=== PATIENT | female | born 1995 | race American Indian/Alaskan Native ===

== ENCOUNTER 2019-07-26 04:24 | Emergency (ER) | payer BC, MEDICAID ==
[2019-07-26] MEDS ORDERED: ACETAMINOPHEN 325 MG TAB ONE (04:43)
[2019-07-26] MEDS ORDERED: ACETAMINOPHEN 325 MG TAB PO ONE (04:48)
[2019-07-26 05:19] LABS: Hematocrit 42.1 % (30.3-42.9); Hemoglobin 14.1 gm/dl (10.1-14.3); Mean Corpuscular HGB Conc 34 % (30-34); Mean Corpuscular Volume 89 fl (79-97); Platelet Count 280 K/mm3 (140-440); Red Blood Count 4.74 M/mm3 (3.65-5.03); Red Cell Distribution Width 13.7 % (13.2-15.2)
[2019-07-26 05:59] LABS: BUN/Creatinine Ratio 14; Blood Urea Nitrogen 18 mg/dL (7-17); Hemolysis Index 12
[2019-07-26 06:06] LABS: Basophils % (Manual) 0 % (0.0-1.8); Platelet Estimate Consistent w Auto; Total Cells Counted 100
--- NOTE | 2019-07-26 08:23 | Emergency Department Report ---
ED General Adult HPI - General Chief complaint: Extremity Injury, Lower Stated complaint: BILATAERAL LEG PAIN Time Seen by Provider: 07/26/19 07:43 Source: patient, family Mode of arrival: Ambulatory Limitations: No Limitations - History of Present Illness Initial comments: This is a 23-year-old female here report that she is having joint pain bilateral lower extremity. She said the pain is located all over but mostly to her knees extending down to her toes. She reports that she woke up this morning she was having spasms to her legs. Patient reports no medical problems she does have a primary medical care physician. She does not remember the name of her primary care physician but she said office is located at [facility]. She says she took ibuprofen 600 mg prior to coming to the emergency room. Denies any shortness of breath, chest pain, nausea and vomiting, abdominal back pain. Denies any urinary burning, frequency or urgency. Patient is on Mirena and denies any recent long distance travel by airplane or car. Denies any history of blood clots or any family history of clotting disorder. Denies any fever or chills. Pain is 10/10 to lower extremities and 4/10 to joints upper extremities. Pain is achy and started this morning. She reports that her legs are spasming this morning with onset of pain. MD Complaint: Joint pain -: This morning Location: upper extremity, lower extremity Radiation: extremity, distal Severity scale (0 -10): 10 Quality: aching Consistency: constant Worsens with: none Associated Symptoms: other ( leg spasm). denies: confusion, chest pain, cough, diaphoresis, fever/chills, headaches, loss of appetite, malaise, nausea/vomiting, rash, seizure, shortness of breath, syncope, weakness Treatments Prior to Arrival: NSAID - Related Data Home Medications Medication Instructions Recorded Confirmed Last Taken Pnv 21/Iron Ps,Heme Ppep/Folic 1 each PO QDAY 01/30/15 03/18/15 01/29/15 12:00 [Prefera Ob Tablet] 1 Previous Rx's Medication Instructions Recorded Last Taken Type cephALEXin [Keflex] 250 mg PO Q6HR #28 capsule 03/10/15 Unknown Rx Famotidine [Pepcid] 20 mg PO BID #40 tablet 03/19/15 Unknown Rx Loratadine (Nf) [Claritin] 10 mg PO DAILY #30 tablet 03/19/15 Unknown Rx Prednisone [predniSONE 5 mg (6-Day 5 mg PO .TAPER #1 tab.ds.pk 03/19/15 Unknown Rx Pack, 21 Tabs)] Acetaminophen [Tylenol] 500 mg PO Q6HR PRN #12 tablet 07/26/19 Unknown Rx diazePAM TAB [Valium] 1 mg PO BID PRN #2 tablet 07/26/19 Unknown Rx Allergies Allergy/AdvReac Type Severity Reaction Status Date / Time No Known Allergies Allergy Verified 01/30/15 09:54 ED Review of Systems ROS: Stated complaint: BILATAERAL LEG PAIN Other details as noted in HPI Constitutional: denies: chills, fever ENT: denies: throat pain, congestion Respiratory: denies: cough, shortness of breath, wheezing Cardiovascular: denies: chest pain, palpitations, dyspnea on exertion, edema, syncope, paroxysmal nocturnal dyspnea Gastrointestinal: denies: abdominal pain, nausea, vomiting, diarrhea, constipation, hematemesis, hematochezia Genitourinary: denies: urgency, dysuria, frequency, hematuria, discharge, abnormal menses, dyspareunia Musculoskeletal: arthralgia, other (spasms the leg). denies: back pain, joint swelling, myalgia Skin: denies: rash Neurological: denies: headache, numbness, paresthesias, abnormal gait, vertigo ED Past Medical Hx - Past Medical History Previous Medical History?: No Hx Hypertension: No Hx Congestive Heart Failure: No Hx Diabetes: No Hx Deep Vein Thrombosis: No Hx Renal Disease: No Hx Sickle Cell Disease: No Hx Seizures: No Hx Asthma: No Hx COPD: No Hx HIV: No - Surgical History Past Surgical History?: No - Family History Family history: hypertension - Social History Smoking Status: Never Smoker Substance Use Type: None - Medications Home Medications: Home Medications Medication Instructions Recorded Confirmed Last Taken Type Pnv 21/Iron Ps,Heme Ppep/Folic 1 each PO QDAY 01/30/15 03/18/15 01/29/15 12:00 History [Prefera Ob Tablet] 1 cephALEXin [Keflex] 250 mg PO Q6HR #28 capsule 03/10/15 03/18/15 Unknown Rx Famotidine [Pepcid] 20 mg PO BID #40 tablet 03/19/15 Unknown Rx Loratadine (Nf) [Claritin] 10 mg PO DAILY #30 tablet 03/19/15 Unknown Rx Prednisone [predniSONE 5 mg (6-Day 5 mg PO .TAPER #1 tab.ds.pk 03/19/15 Unknown Rx Pack, 21 Tabs)] Acetaminophen [Tylenol] 500 mg PO Q6HR PRN #12 tablet 07/26/19 Unknown Rx diazePAM TAB [Valium] 1 mg PO BID PRN #2 tablet 07/26/19 Unknown Rx ED Physical Exam - General Limitations: No Limitations General appearance: alert, in no apparent distress - Head Head exam: Present: atraumatic, normocephalic, normal inspection - Expanded Head Exam Expanded Head exam: Absent: laceration, abrasion, contusion, hematoma, racoon eyes, dunne's sign, general tenderness, tenderness of temporal artery, CSF rhinorrhea, CSF otorrhea - Eye Eye exam: Present: normal appearance, PERRL, EOMI. Absent: nystagmus Pupils: Present: normal accommodation - ENT ENT exam: Present: normal exam, normal orophraynx, mucous membranes moist, TM's normal bilaterally, normal external ear exam - Neck Neck exam: Present: normal inspection, full ROM, other (no C-spine tenderness). Absent: tenderness, meningismus, lymphadenopathy - Respiratory Respiratory exam: Present: normal lung sounds bilaterally. Absent: respiratory distress, chest wall tenderness - Cardiovascular Cardiovascular Exam: Present: regular rate, normal rhythm, normal heart sounds - GI/Abdominal GI/Abdominal exam: Present: soft, normal bowel sounds. Absent: distended, tenderness - Extremities Exam Extremities exam: Present: normal inspection, full ROM, normal capillary refill, other (no bony abnormality or joint tenderness. Extremity exam is normal. +2 pulses in all extremities. No clubbing, cyanosis or edema. No spasm noted. Patient evidently ambulates without any difficulty.). Absent: tenderness, pedal edema, joint swelling, calf tenderness - Back Exam Back exam: Present: normal inspection, full ROM. Absent: tenderness, CVA tenderness (R), CVA tenderness (L), muscle spasm, paraspinal tenderness, vertebral tenderness, rash noted - Neurological Exam Neurological exam: Present: alert, oriented X3, normal gait, reflexes normal. Absent: motor sensory deficit - Expanded Neurological Exam Expanded Neurological exam: Absent: innattentive, memory loss-remote event, memory loss- recent event, ataxia, receptive aphasia, expressive aphasia, total aphasia, tremor, protecting the airway Patient oriented to: Present: person, place, time Speech: Present: fluid speech Cranial nerves: EOM's Intact: Normal, Gag Reflex: Normal, Tongue Deviation: Normal, Nystagmus: Normal, Facial Sensation: Normal Cerebellar function: Romberg: Normal Upper motor neuron: Pronator Drift: Normal, Sensory Extinction: Normal Sensory exam: Upper Extremity Light Touch: Normal, Upper Extremity Temperature: Normal, Lower Extremity Light Touch: Normal, Lower Extremity Temperature: Normal Motor strength exam: RUE: 5, LUE: 5, RLE: 5, LLE: 5 Best Eye Response ([place]): (4) open spontaneously Best Motor Response ([place]): (6) obeys commands Best Verbal Response ([place]): (5) oriented Arpan Total: 15 - Psychiatric Psychiatric exam: Present: normal affect, normal mood - Skin Skin exam: Present: warm, dry, intact, normal color. Absent: rash ED Course Vital Signs 07/26/19 04:30 Temperature 98 F Pulse Rate 72 Respiratory 18 Rate Blood Pressure 110/68 O2 Sat by Pulse 100 Oximetry - Reevaluation(s) Reevaluation #1: 07/26/19 09:21 Patient was given Tylenol 650 mg in triage. This morning and she had was that her pain is better. Patient had bilateral lower extremity venous Doppler ultrasound which are also negative. Patient blood work shows that she has elevated white count with mild elevation in monocytes otherwise stable. Her BMP shows mild elevation in BUN and creatinine at 18 and 1.3 with no history per patient of elevation. Reevaluation #2: 07/26/19 10:24 Patient given Valium 2 mg by mouth for Spasm. I discuss with her and her lab results and clarification. I collaborated with Dr. Ruddy Johnston regarding patient presentation, vital signs, laboratory reports, ultrasound report and patient's complaint. It was decided that patient can follow up outpatient with specialists. Patient with mild acute renal failure and this was discussed with Dr. Ruddy Johnston and patient will be referred to nephrologists. ED Medical Decision Making - Lab Data Result diagrams: 07/26/19 04:49 07/26/19 04:43 Lab Results 07/26/19 07/26/19 07/26/19 Range/Units 04:43 04:43 04:49 WBC 16.1 H (4.5-11.0) K/mm3 RBC 4.74 (3.65-5.03) M/mm3 Hgb 14.1 (10.1-14.3) gm/dl Hct 42.1 (30.3-42.9) % MCV 89 (79-97) fl MCH 30 (28-32) pg MCHC 34 (30-34) % RDW 13.7 (13.2-15.2) % Plt Count 280 (140-440) K/mm3 Lymph # Clinical Biochemical Geneticist Add Manual Diff Complete Total Counted 100 Seg Neuts % (Manual) 58.0 (40.0-70.0) % Band Neutrophils % 0 % Lymphocytes % (Manual) 30.0 (13.4-35.0) % Reactive Lymphs % (Man) 0 % Monocytes % (Manual) 9.0 H (0.0-7.3) % Eosinophils % (Manual) 2.0 (0.0-4.3) % Basophils % (Manual) 0 (0.0-1.8) % Metamyelocytes % 1.0 % Myelocytes % 0 % Promyelocytes % 0 % Blast Cells % 0 % Nucleated RBC % Not Reportable Seg Neutrophils # Man 9.3 H (1.8-7.7) K/mm3 Band Neutrophils # 0.0 K/mm3 Lymphocytes # (Manual) 4.8 (1.2-5.4) K/mm3 Abs React Lymphs (Man) 0.0 K/mm3 Monocytes # (Manual) 1.4 H (0.0-0.8) K/mm3 Eosinophils # (Manual) 0.3 (0.0-0.4) K/mm3 Basophils # (Manual) 0.0 (0.0-0.1) K/mm3 Metamyelocytes # 0.2 K/mm3 Myelocytes # 0.0 K/mm3 Promyelocytes # 0.0 K/mm3 Blast Cells # 0.0 K/mm3 WBC Morphology Not Reportable Hypersegmented Neuts Not Reportable Hyposegmented Neuts Not Reportable Hypogranular Neuts Not Reportable Smudge Cells Not Reportable Toxic Granulation Not Reportable Toxic Vacuolation Not Reportable Dohle Bodies Not Reportable Pelger-Huet Anomaly Not Reportable Quinten Rods Not Reportable Platelet Estimate Consistent w auto Clumped Platelets Not Reportable Plt Clumps, EDTA Not Reportable Large Platelets Not Reportable Giant Platelets Not Reportable Platelet Satelliting Not Reportable Plt Morphology Comment Not Reportable RBC Morphology Not Reportable Dimorphic RBCs Not Reportable Polychromasia Not Reportable Hypochromasia Not Reportable Poikilocytosis Not Reportable Anisocytosis Not Reportable Microcytosis Not Reportable Macrocytosis Not Reportable Spherocytes Not Reportable Pappenheimer Bodies Not Reportable Sickle Cells Not Reportable Target Cells Not Reportable Tear Drop Cells Not Reportable Ovalocytes Not Reportable Helmet Cells Not Reportable [place] Bodies Not Reportable [place] Rings Not Reportable [place] Cells Not Reportable Bite Cells Not Reportable Crenated Cell Not Reportable Elliptocytes Not Reportable Acanthocytes (Spur) Not Reportable Rouleaux Not Reportable Hemoglobin C Crystals Not Reportable Schistocytes Not Reportable Malaria parasites Not Reportable Jose Martin Bodies Not Reportable Hem Pathologist Commnt No Sodium 140 (137-145) mmol/L Potassium 3.8 (3.6-5.0) mmol/L Chloride 98.9 (98-107) mmol/L Carbon Dioxide 25 (22-30) mmol/L Anion Gap 20 mmol/L BUN 18 H (7-17) mg/dL Creatinine 1.3 H (0.7-1.2) mg/dL Estimated GFR > 60 ml/min BUN/Creatinine Ratio 14 % Glucose 102 H (65-100) mg/dL Calcium 9.0 (8.4-10.2) mg/dL HCG, Qual Negative (Negative) - Radiology Data Radiology results: report reviewed Venous Doppler ultrasound report dictated by radiologist and report reviewed by myself. No acute findings. I am unable to populate this area due to computer difficulties - Medical Decision Making Case was discussed with Dr. Ruddy Johnston emergency room attending physician. She is aware of patient's complaints, laboratory findings and ultrasound findings. She wants patient to follow-up outpatient with health associate, primary care, nephrologists and possible neurologist which primary care can refer her to for further workup. Patient here for arthralgias and spasms. She was found to have mild acute renal failure according to labs, leukocytosis with white count of 16.1. test is negative. Patient was given Tylenol in triage. Her pain is better and she was given Valium 2 mg for complain of spasm. I. She does have a primary care physician and I also discussed with her her ultrasound results which were normal. Ultrasound dictated by radiologist and report reviewed by myself. I discussed the patient that she has elevation in her white blood count and also in her kidney function and show with arthralgias in more than one joints she needs to follow up with health associate which she does have access health associate and to also call her primary care physician to schedule an appointment for follow-up visit after ED and 2-3 days and she voiced understanding. I discussed detail information with her regarding in possibility lupus, and other a utoimmune conditions. I discussed with her that there is a possibility that she may have multiple sclerosis but she will have to follow up outpatient per her primary care physician evaluation. I also discussed with her that I will refer her to nephrologists. She is stable, in no acute distress. She says she is feeling better. Patient discharged home with prescription for Tylenol and Valium and I discussed with her that she cannot drive or operate heavy machinery while taking Valium as this medication causes drowsiness and that she needs to call her primary care physician to schedule an appointment follow-up visit either Sunday or Sunday of this upcoming week. 1 Discussed the patient that if her condition worsens to return to the emergency room otherwise f/u appointment with primary care - Differential Diagnosis neurological D/O, autoimmune D/O, MSK pain Critical care attestation.: If time is entered above; I have spent that time in minutes in the direct care of this critically ill patient, excluding procedure time. ED Disposition Clinical Impression: Arthralgia of multiple sites, bilateral, Spasm Disposition: - TO HOME OR SELFCARE Is pt being admited?: No Does the pt Need Aspirin: No Condition: Stable Instructions: Arthralgia (ED), Muscle Spasm (ED) Additional Instructions: follow-up with primary care physician in 2-3 days Take Medication as prescribed but please do not drive or operate heavy machinery while taking Valium as this medication can cause drowsiness. Increase her fluid intake to 2-3 L of water daily. Rest for couple days. If he condition worsens, return to the emergency room Prescriptions: Acetaminophen [Tylenol] 500 mg PO Q6HR PRN #12 tablet PRN Reason: Pain diazePAM TAB [Valium] 1 mg PO BID PRN #2 tablet PRN Reason: spasm Referrals: PRIMARY CARE, [Primary Care Provider] - 2-3 Days ANDREW OLIVERA MD [Staff Physician] - 3-5 Days ROSEMARIE BYRD MD [Referring] - 2-3 Days follow-up with, health associate [Other] - 2-3 Days (Address: [address] [place] [id number] ) Forms: Accompanied Note, Work/School Release Form(ED)
--- NOTE | 2019-07-26 09:17 | Vascular Lab Report ---
DUPLEX DOPPLER LOWER EXTREMITY VEINS, BILATERAL INDICATION / CLINICAL INFORMATION: BLE pain. TECHNIQUE: Duplex doppler imaging was performed through the veins of both lower extremities using venous sonal ana luisa and other maneuvers. COMPARISON: None available. FINDINGS: RIGHT COMMON FEMORAL VEIN: Negative. RIGHT FEMORAL VEIN: Negative. RIGHT POPLITEAL VEIN: Negative. RIGHT CALF VEINS: Negative. LEFT COMMON FEMORAL VEIN: Negative. LEFT FEMORAL VEIN: Negative. LEFT POPLITEAL VEIN: Negative. LEFT CALF VEINS: Negative. ADDITIONAL FINDINGS: None. IMPRESSION: 1. No sonographic evidence for DVT in either lower extremity. Signer Name: Norman Lockhart MD Signed: 07/26/2019 9:12 AM Workstation Name: [id number]
[2019-07-26] MEDS ORDERED: diazePAM 2 MG TAB PO ONE (11:00)
[2019-07-26 11:14] VITALS: BP 93/58
== END 2019-07-26 11:15 | disposition home or self-care (01) ==
LOC: ED 04:24
DX: M79.605 Pain in left leg (principal); M79.604 Pain in right leg; Z79.899 Other long term (current) drug therapy
CPT/HCPCS: 36415; 80048; 84703; 85007; 85025; 93970

== ENCOUNTER 2021-04-06 21:14 | Inpatient (IN) | payer OTHER, MEDICAID ==
--- NOTE | 2021-04-06 21:59 | Emergency Department Report ---
ED General Adult HPI - General Chief complaint: Abdominal Pain Stated complaint: RT LOWER AB PAIN Time Seen by Provider: 04/06/21 21:32 Source: patient Mode of arrival: Ambulatory Limitations: No Limitations - History of Present Illness Initial comments: 25-year-old female patient presents to emergency department with complaints of abdominal pain starting approximately 5 hours ago. Pain is localized to the right lower quadrant. Patient took Claritin prior to arrival. No history of similar symptoms. No prior abdominal surgeries. Last menstrual cycle was approximately 1 week ago. Denies fever, chills, nausea, vomiting, vaginal bleeding, vaginal discharge. Denies all other complaints at this time. Severity scale (0 -10): 8 - Related Data Home Medications Medication Instructions Recorded Confirmed Last Taken Pnv 21/Iron Ps,Heme Ppep/Folic 1 each PO QDAY 01/30/15 03/18/15 01/29/15 12:00 [Prefera Ob Tablet] 1 Previous Rx's Medication Instructions Recorded Last Taken Type cephALEXin [Keflex] 250 mg PO Q6HR #28 capsule 03/10/15 Unknown Rx Famotidine [Pepcid] 20 mg PO BID #40 tablet 03/19/15 Unknown Rx Loratadine (Nf) [Claritin] 10 mg PO DAILY #30 tablet 03/19/15 Unknown Rx Prednisone [predniSONE 5 mg (6-Day 5 mg PO .TAPER #1 tab.ds.pk 03/19/15 Unknown Rx Pack, 21 Tabs)] Acetaminophen [Tylenol] 500 mg PO Q6HR PRN #12 tablet 07/26/19 Unknown Rx diazePAM TAB [Valium] 1 mg PO BID PRN #2 tablet 07/26/19 Unknown Rx Allergies Allergy/AdvReac Type Severity Reaction Status Date / Time No Known Allergies Allergy Verified 04/06/21 22:42 ED Review of Systems ROS: Stated complaint: RT LOWER AB PAIN Other details as noted in HPI Other: GENERAL: Negative for fever, chills, weight change, anorexia, fatigue. ENT: Negative for ear pain, difficulty hearing, sore throat, nasal congestion, epistaxis. CARDIOVASCULAR: Negative for chest pain, palpitations, lower extremity swelling. PULMONARY: Negative for cough, dyspnea, wheezing, orthopnea, cyanosis. GASTROINTESTINAL: Positive for abdominal pain. MUSCULOSKELETAL: Negative for joint pain, joint swelling, myalgias, back pain, neck pain. NEUROLOGICAL: Negative for headache, seizure, syncope, paresthesias, weakness. INTEGUMENTARY: Negative for erythema, rash, diaphoresis, laceration, ecchymosis. HEMATOLOGICAL: Negative for hemoptysis, hematemesis, hematochezia, hematuria. PSYCHIATRIC: Negative for hallucinations, suicidal ideation, homicidal ideation, anxiety, depression. ED Past Medical Hx - Past Medical History Previous Medical History?: Yes Hx Hypertension: No Hx Congestive Heart Failure: No Hx Diabetes: No Hx Deep Vein Thrombosis: No Hx Renal Disease: No Hx Sickle Cell Disease: No Hx Seizures: No Hx Asthma: No Hx COPD: No Hx HIV: No Additional medical history: Depression - Surgical History Past Surgical History?: No - Social History Smoking Status: Former Smoker Substance Use Type: None - Medications Home Medications: Home Medications Medication Instructions Recorded Confirmed Last Taken Type Pnv 21/Iron Ps,Heme Ppep/Folic 1 each PO QDAY 01/30/15 03/18/15 01/29/15 12:00 History [Prefera Ob Tablet] 1 cephALEXin [Keflex] 250 mg PO Q6HR #28 capsule 03/10/15 03/18/15 Unknown Rx Famotidine [Pepcid] 20 mg PO BID #40 tablet 03/19/15 Unknown Rx Loratadine (Nf) [Claritin] 10 mg PO DAILY #30 tablet 03/19/15 Unknown Rx Prednisone [predniSONE 5 mg (6-Day 5 mg PO .TAPER #1 tab.ds.pk 03/19/15 Unknown Rx Pack, 21 Tabs)] Acetaminophen [Tylenol] 500 mg PO Q6HR PRN #12 tablet 07/26/19 Unknown Rx diazePAM TAB [Valium] 1 mg PO BID PRN #2 tablet 07/26/19 Unknown Rx ED Physical Exam - General Limitations: No Limitations - Other Other exam information: General: Awake and alert. No acute distress. Head: Atraumatic, normocephalic. Eyes: EOMI. Pupils are equal and round. Normal sclera and conjunctiva. ENT: Oral mucosa is moist. Normal pharyngeal exam. Neck: Supple. No lymphadenopathy. Pulmonary: No respiratory distress. Clear to auscultation bilaterally. Cardiac: Regular rate and rhythm. Pulses are palpable and equal bilaterally. No lower extremity cyanosis or edema. Skin: Warm and dry. No rashes. Abdomen: Soft, non-protuberant. Right lower quadrant tenderness without guarding, rigidity, or rebound. Bowel sounds are normal. No organomegaly or masses noted. Back: Normal alignment. No CVA tenderness. Extremities: Symmetrical. Full range of motion intact. Neurological: Alert and oriented, appropriately interactive, no focal deficits. Psych: Cooperative. Appropriate mood and affect. Speech is evenly metered. Thoughts are logically construed. ED Course Vital Signs 04/06/21 04/07/21 21:21 01:30 Temperature 99.7 F H Pulse Rate 87 Respiratory 18 18 Rate Blood Pressure 119/67 [Left] O2 Sat by Pulse 98 Oximetry ED Medical Decision Making - Lab Data Result diagrams: 04/06/21 22:18 04/06/21 22:18 - Radiology Data [facility] [address] [place] [address] Cat Scan Report Signed Patient: MAY DORAN MR#: [id number] : 1995 Acct:[id number] Age/Sex: 25 / F ADM Date: 04/06/21 Loc: ED Attending Dr: Ordering Physician: ANNEMARIE HANDLEY Date of Service: 04/06/21 Procedure(s): CT abdomen pelvis w con Accession Number(s): [id number] cc: ANNEMARIE HANDLEY CT ABDOMEN AND PELVIS WITH CONTRAST INDICATION: R.L.Q. abdominal pain CONTRAST: 100 cc Omnipaque 300 IV COMPARISON: None available. All CT scans at this location are performed using CT dose reduction for ALARA by means of automated exposure control. FINDINGS: Lung bases are clear. No pneumoperitoneum is seen. No masses are noted. No urinary obstructive changes are seen. Gallbladder and bile ducts appear within normal limits. No inflammatory changes are seen. Minimal free fluid in the pelvis is nonspecific. No adnexal masses are seen. Density in the right adnexal area is thought related to enhancing vascularity, particularly as viewed on coronal images. IUD is seen in the uterine fundus. No lymphadenopathy is seen. What I believe is the appendix is partially visualized and shows an appendicolith but the appendix is not dilated. No inflammation is seen in this area or other areas. Gas and stool are seen throughout the colon. Several loops of small bowel show mild distention though not dilatation with gas and fluid with scattered air-fluid levels seen. No wall thickening is noted. IMPRESSION: Bowel gas pattern suggests mild enteritis Signer Name: Charan Pressley MD Signed: 04/07/2021 12:04 AM Workstation Name: [id number] Transcribed By: TOO Dictated By: Charan Pressley MD Electronically Authenticated By: Charan Pressley MD Signed Date/Time: 04/07/21 0004 DD/ 0596 TD/TT: [facility] [address] [place] [address] Ultrasound Report Signed Patient: MAY DORAN MR#: [id number] : 1995 Acct:[id number] Age/Sex: 25 / F ADM Date: 04/06/21 Loc: ED Attending Dr: Ordering Physician: ANNEMARIE HANDLEY Date of Service: 04/07/21 Procedure(s): US transvaginal Accession Number(s): [id number] cc: ANNEMARIE HANDLEY PELVIC ULTRASOUND INDICATION: RLQ pain - ovarian torsion COMPARISON: None pertinent available TECHNIQUE: Endovaginal FINDINGS: Uterus: Measures 8 cm in length. IUD is seen in the endometrial canal the fundus in appropriate position. Endometrial stripe measures 5 mm. No fluid is seen within the endometrial canal. No masses are noted. Mild diffuse vascularity is not thought likely significant. Right ovary: 2.9 cm, small follicular-type cysts, flow noted Left ovary: 2.6 cm, small follicular-type cysts, flow noted Small amount of nonspecific free fluid is seen in the cul-de-sac IMPRESSION: No significant lesions are seen Signer Name: Charan Pressley MD Signed: 04/07/2021 1:54 AM Workstation Name: [id number] Transcribed By: TOO Dictated By: Charan Pressley MD Electronically Authenticated By: Charan Pressley MD Signed Date/Time: 04/07/21 0154 DD/ 015 TD/TT: - Medical Decision Making Differential diagnosis including but not limited to: appendicitis, ovarian cyst/torsion, pyelonephritis, nephrolithiasis, urinary tract infection, hernia, viral illness On reevaluation, patient states she is still in pain. Given additional dose of morphine. Labs significant for mild leukocytosis. test is negative. CT of the abdomen/pelvis shows partially visualized appendix with appendicolith, no obvious inflammation or dilation. Right adnexal density thought to be related to enhancing vascularity noted. Transvaginal ultrasound obtained for further evaluation, which showed no evidence of ovarian torsion. Repeat abdominal exam is unchanged. High clinical suspicion for early appendicitis. Case discussed with Dr. Gordon, general surgeon, who recommends keeping patient NPO and holding antibiotics, agrees to evaluate patient on admission to hospital medicine service. Case discussed with hospitalist, who agrees to admit. Patient expressed understanding and is agreeable to plan of care. Case discussed with Dr. Pires, attending emergency physician, who agrees with diagnostic work-up/plan of care. Critical care attestation.: If time is entered above; I have spent that time in minutes in the direct care of this critically ill patient, excluding procedure time. ED Disposition Clinical Impression: Right lower quadrant pain Leukocytosis Qualifiers: Leukocytosis type: unspecified Qualified Code(s): D72.829 - Elevated white blood cell count, unspecified Disposition: 09 ADMITTED INPATIENT Is pt being admited?: Yes Does the pt Need Aspirin: No Condition: Stable Instructions: Abdominal Pain (ED) Time of Disposition: 02:45
[2021-04-06] MEDS ORDERED: ONDANSETRON 4 MG/2 ML INJ IV ONE (22:43)
[2021-04-06] MEDS ORDERED: MORPHINE 4 MG/1 ML INJ IV ONE (22:43)
[2021-04-06 22:44] LABS: Basophils % (Auto) 0.3 % (0.0-1.8); Eosinophils % (Auto) 0.2 % (0.0-4.3); Hematocrit 38.7 % (30.3-42.9); Hemoglobin 13.1 gm/dl (10.1-14.3); Lymphocytes # (Auto) 1.4 K/mm3 (1.2-5.4); Lymphocytes % (Auto) 10.5 % (13.4-35.0); Mean Corpuscular HGB Conc 34 % (30-34); Mean Corpuscular Volume 87 fl (79-97); Monocytes # (Auto) 1.3 K/mm3 (0.0-0.8); Monocytes % (Auto) 9.4 % (0.0-7.3); Platelet Count 257 K/mm3 (140-440); Red Blood Count 4.44 M/mm3 (3.65-5.03); Red Cell Distribution Width 13.4 % (13.2-15.2)
[2021-04-06 22:52] LABS: Alanine Aminotransferase 10 units/L (7-56); Albumin 4.5 g/dL (3.9-5); BUN/Creatinine Ratio 5; Blood Urea Nitrogen 4 mg/dL (7-17); Calcium 9.1 mg/dL (8.4-10.2); Hemolysis Index 4
--- NOTE | 2021-04-07 00:08 | Cat Scan Report ---
CT ABDOMEN AND PELVIS WITH CONTRAST INDICATION: R.L.Q. abdominal pain CONTRAST: 100 cc Omnipaque 300 IV COMPARISON: None available. All CT scans at this location are performed using CT dose reduction for ALARA by means of automated e xposure control. FINDINGS: Lung bases are clear. No pneumoperitoneum is seen. No masses are noted. No urinary obstruct milana changes are seen. Gallbladder and bile ducts appear within normal limits. No inflammatory changes are seen. Minimal free fluid in the pelvis is nonspecific. No adnexal masses are seen. Density in th e right adnexal area is thought related to enhancing vascularity, particularly as viewed on coronal i mages. IUD is seen in the uterine fundus. No lymphadenopathy is seen. What I believe is the appendix is partially visualized and shows an appendicolith but the appendix is not dilated. No inflammation is seen in this area or other areas. Gas and stool are seen throughout the colon. Several loops of small bowel show mild distention though not dilatation with gas and fluid with scattered air-fluid levels seen. No wall thickening is noted. IMPRESSION: Bowel gas pattern suggests mild enteritis Signer Name: Charan Pressley MD Signed: 04/07/2021 12:04 AM Workstation Name: [id number]
[2021-04-07 00:10] LABS: Bilirubin,Urine NEG (Negative); Blood,Urine NEG (Negative); Color,Urine Straw (Yellow); Protein,Urine <15 mg/dL mg/dL (Negative); RBC,Urine < 1.0 /HPF (0.0-6.0); Urobilinogen,Urine < 2.0 mg/dL (<2.0)
[2021-04-07] MEDS ORDERED: MORPHINE 2 MG/1 ML INJ IV ONE (01:07)
--- NOTE | 2021-04-07 01:59 | Ultrasound Report ---
PELVIC ULTRASOUND INDICATION: RLQ pain - ovarian torsion COMPARISON: None pertinent available TECHNIQUE: Endovaginal FINDINGS: Uterus: Measures 8 cm in length. IUD is seen in the endometrial canal the fundus in appropriate posit ion. Endometrial stripe measures 5 mm. No fluid is seen within the endometrial canal. No masses are n oted. Mild diffuse vascularity is not thought likely significant. Right ovary: 2.9 cm, small follicular-type cysts, flow noted Left ovary: 2.6 cm, small follicular-type cysts, flow noted Small amount of nonspecific free fluid is seen in the cul-de-sac IMPRESSION: No significant lesions are seen Signer Name: Charan Pressley MD Signed: 04/07/2021 1:54 AM Workstation Name: [id number]
[2021-04-07] MEDS ORDERED: ACETAMINOPHEN 325 MG TAB PO PRN (03:09)
[2021-04-07] MEDS ORDERED: MAGNESIUM HYDROXIDE (MOM) ORAL LIQD UDC PO PRN (03:09)
[2021-04-07] MEDS ORDERED: MORPHINE 2 MG/1 ML INJ IV PRN (03:09)
[2021-04-07] MEDS ORDERED: ONDANSETRON 4 MG/2 ML INJ IV PRN (03:09)
[2021-04-07] MEDS ORDERED: ALUM-MAG HYDROXIDE-SIMETHICONE 200-200-20MG/5ML ORAL LIQD 30 ML PO PRN (03:09)
[2021-04-07] MEDS ORDERED: MORPHINE 4 MG/1 ML INJ IV PRN (03:09)
[2021-04-07] MEDS ORDERED: oxyCODONE /ACETAMINOPHEN 5-325MG TAB PO PRN (03:09)
[2021-04-07] MEDS ORDERED: METOCLOPRAMIDE 10 MG/2 ML INJ IV PRN (03:09)
[2021-04-07] MEDS ORDERED: NALOXONE 0.4 MG/1 ML INJ IV PRN (03:09)
[2021-04-07] MEDS ORDERED: SODIUM CHLORIDE 0.9% 1000 ML 1,000 ML IV SCH (03:15)
--- NOTE | 2021-04-07 03:16 | History and Physical Report ---
History of Present Illness Date of examination: 04/07/21 Date of admission: 04/07/21 Chief complaint: abdiminal pain History of present illness: This is a 25-year-old female patient seen in ED at bedside. presents to emergency department with complaints of abdominal pain starting approximately 5 hours ago. Pain is localized to the right lower quadrant. Pain level at the time of assessment 4/10. She said she took pain medicine is helping her with the pain. General surgeon has been consulted and he agreed to see patient in the morning. Patient denies alcohol use, illicit drug use, but she admits marijuana use. She said she quit marijuana use about 3 months ago. Patient is n.p.o. Gentle IV hydration started. Past History Past Medical History: No medical history Past Surgical History: No surgical history Social history: lives with family. denies: smoking, alcohol abuse, prescription drug abuse, IV drug use Family history: hypertension Medications and Allergies Allergies Allergy/AdvReac Type Severity Reaction Status Date / Time No Known Allergies Allergy Verified 04/06/21 22:42 Home Medications Medication Instructions Recorded Confirmed Last Taken Type Pnv 21/Iron Ps,Heme Ppep/Folic 1 each PO QDAY 01/30/15 03/18/15 01/29/15 12:00 History [Prefera Ob Tablet] 1 cephALEXin [Keflex] 250 mg PO Q6HR #28 capsule 03/10/15 03/18/15 Unknown Rx Famotidine [Pepcid] 20 mg PO BID #40 tablet 03/19/15 Unknown Rx Loratadine (Nf) [Claritin] 10 mg PO DAILY #30 tablet 03/19/15 Unknown Rx Prednisone [predniSONE 5 mg (6-Day 5 mg PO .TAPER #1 tab.ds.pk 03/19/15 Unknown Rx Pack, 21 Tabs)] Acetaminophen [Tylenol] 500 mg PO Q6HR PRN #12 tablet 07/26/19 Unknown Rx diazePAM TAB [Valium] 1 mg PO BID PRN #2 tablet 07/26/19 Unknown Rx Active Meds: Active Medications Sodium Chloride (Sodium Chloride 0.9% 10 Ml Flush Syringe) 10 ml IV PRN PRN PRN Reason: LINE FLUSH Review of Systems Ears, nose, mouth and throat: no epistaxis, no bleeding gums Cardiovascular: no chest pain Respiratory: no wheezing Gastrointestinal: abdominal pain, nausea, no melena Rectal: no itching, no hemorrhoids Integumentary: no rash, no pruritis Psychiatric: anxiety Hematologic/Lymphatic: no easy bruising, no easy bleeding, no lymphadenopathy, no lymphedema Allergic/Immunologic: no urticaria, no allergic rhinitis Exam - Constitutional Vitals: Temp Pulse Resp BP Pulse Ox 99.7 F H 87 18 119/67 98 04/06/21 21:21 04/06/21 21:21 04/07/21 01:30 04/06/21 21:21 04/06/21 21:21 General appearance: Present: mild distress, well-nourished - EENT Eyes: Present: PERRL ENT: hearing intact, clear oral mucosa - Neck Neck: Present: supple, normal ROM - Respiratory Respiratory effort: normal Respiratory: bilateral: CTA - Cardiovascular Heart Sounds: Present: S1 & S2. Absent: rub, click - Extremities Extremities: pulses symmetrical, No edema Peripheral Pulses: within normal limits - Abdominal General gastrointestinal: Present: soft, tender, normal bowel sounds Localized gastrointestinal: tender: RLQ, guarding: RLQ Female genitourinary: Present: normal - Integumentary Integumentary: Present: clear, warm, dry - Musculoskeletal Musculoskeletal: gait normal, strength equal bilaterally - Psychiatric Psychiatric: appropriate mood/affect, intact judgment & insight - Neurologic Neurologic: CNII-XII intact, moves all extremities - Allied Health Allied health notes reviewed: nursing Results - Labs CBC & Chem 7: 04/06/21 22:18 04/06/21 22:18 Labs: Abnormal lab results 04/06/21 04/06/21 04/06/21 Range/Units 22:18 22:18 Unknown WBC 13.7 H (4.5-11.0) K/mm3 Lymph % (Auto) 10.5 L (13.4-35.0) % Cole % (Auto) 9.4 H (0.0-7.3) % Cole # (Auto) 1.3 H (0.0-0.8) K/mm3 Seg Neutrophils % 79.6 H (40.0-70.0) % Seg Neutrophils # 10.9 H (1.8-7.7) K/mm3 Potassium 3.5 L (3.6-5.0) mmol/L BUN 4 L (7-17) mg/dL Ur Specific [place] 1.033 H (1.003-1.030) Assessment and Plan - Patient Problems (1) Right lower quadrant pain Current Visit: Yes Status: Acute Plan to address problem: Abdominal CT showed Enteritis-suspicious for appendicitis Plan General surgeon was consulted and he agreed to see patient in the morning. Patient is n.p.o. gentle IV hydration started Pain management as needed (2) Leukocytosis Current Visit: Yes Status: Acute Qualifiers: Leukocytosis type: unspecified Qualified Code(s): D72.829 - Elevated white blood cell count, unspecified Plan to address problem: Likely secondary to enteritis ED physician discussed with general surgeonhe recommends to hold antibiotic for now till he sees patient (3) DVT prophylaxis Current Visit: No Status: Acute Plan to address problem: SCD
[2021-04-07] MEDS: PIPERACIL/TAZOBACTA 4.5/NS 100 4.5 GM/100 ML VIAL IV SCH ×2 (08:56→16:55)
--- NOTE | 2021-04-07 10:25 | Progress Note ---
Assessment and Plan Assessment and plan: Right upper and lower quadrant abdominal pain. Enteritis Leukocytosis. 04/07/2021. Patient will remain on IV antibiotics for now. Await surgery consultation. Anticipate discharge in a.m. if cleared by surgery and tolerating diet History Interval history: Patient still complains of right upper and lower quadrant abdominal pain Hospitalist Physical - Constitutional Vitals: Temp Pulse Resp BP Pulse Ox 98.6 F 80 15 107/61 99 04/07/21 04:13 04/07/21 04:13 04/07/21 04:13 04/07/21 04:13 04/07/21 05:10 General appearance: Present: no acute distress, well-nourished - EENT Eyes: Present: PERRL, EOM intact ENT: hearing intact, clear oral mucosa, dentition normal - Neck Neck: Present: supple, normal ROM - Respiratory Respiratory effort: normal Respiratory: bilateral: CTA - Cardiovascular Rhythm: regular Heart Sounds: Present: S1 & S2. Absent: gallop, rub - Extremities Extremities: no ischemia, No edema, Full ROM - Abdominal General gastrointestinal: soft, non-tender, non-distended, normal bowel sounds - Integumentary Integumentary: Present: clear, warm, dry - Neurologic Neurologic: CNII-XII intact, moves all extremities Results - Labs CBC & Chem 7: 04/06/21 22:18 04/06/21 22:18 Labs: Laboratory Last Values WBC 13.7 K/mm3 (4.5-11.0) H 04/06/21 22:18 RBC 4.44 M/mm3 (3.65-5.03) 04/06/21 22:18 Hgb 13.1 gm/dl (10.1-14.3) 04/06/21 22:18 Hct 38.7 % (30.3-42.9) 04/06/21 22:18 MCV 87 fl (79-97) 04/06/21 22:18 MCH 30 pg (28-32) 04/06/21 22:18 MCHC 34 % (30-34) 04/06/21 22:18 RDW 13.4 % (13.2-15.2) 04/06/21 22:18 Plt Count 257 K/mm3 (140-440) 04/06/21 22:18 Lymph % (Auto) 10.5 % (13.4-35.0) L 04/06/21 22:18 [place] % (Auto) 9.4 % (0.0-7.3) H 04/06/21 22:18 Eos % (Auto) 0.2 % (0.0-4.3) 04/06/21 22:18 Baso % (Auto) 0.3 % (0.0-1.8) 04/06/21 22:18 Lymph # (Auto) 1.4 K/mm3 (1.2-5.4) 04/06/21 22:18 [place] # (Auto) 1.3 K/mm3 (0.0-0.8) H 04/06/21 22:18 Eos # (Auto) 0.0 K/mm3 (0.0-0.4) 04/06/21 22:18 Baso # (Auto) 0.0 K/mm3 (0.0-0.1) 04/06/21 22:18 Seg Neutrophils % 79.6 % (40.0-70.0) H 04/06/21 22:18 Seg Neutrophils # 10.9 K/mm3 (1.8-7.7) H 04/06/21 22:18 Sodium 139 mmol/L (137-145) 04/06/21 22:18 Potassium 3.5 mmol/L (3.6-5.0) L 04/06/21 22:18 Chloride 102.4 mmol/L (98-107) 04/06/21 22:18 Carbon Dioxide 27 mmol/L (22-30) 04/06/21 22:18 Anion Gap 13 mmol/L 04/06/21 22:18 BUN 4 mg/dL (7-17) L 04/06/21 22:18 Creatinine 0.8 mg/dL (0.6-1.2) 04/06/21 22:18 Estimated GFR > 60 ml/min 04/06/21 22:18 BUN/Creatinine Ratio 5 % 04/06/21 22:18 Glucose 83 mg/dL (65-100) 04/06/21 22:18 Calcium 9.1 mg/dL (8.4-10.2) 04/06/21 22:18 Magnesium 2.10 mg/dL (1.7-2.3) 04/06/21 22:18 Total Bilirubin 0.30 mg/dL (0.1-1.2) 04/06/21 22:18 AST 15 units/L (5-40) 04/06/21 22:18 ALT 10 units/L (7-56) 04/06/21 22:18 Alkaline Phosphatase 73 units/L (35-129) 04/06/21 22:18 Total Protein 7.1 g/dL (6.3-8.2) 04/06/21 22:18 Albumin 4.5 g/dL (3.9-5) 04/06/21 22:18 Albumin/Globulin Ratio 1.7 % 04/06/21 22:18 Lipase 16 units/L (13-60) 04/06/21 22:18 HCG, Qual Negative (Negative) 04/06/21 22:18 Urine Color Straw (Yellow) 04/06/21 Unknown Urine Turbidity Clear (Clear) 04/06/21 Unknown Urine pH 6.0 (5.0-7.0) 04/06/21 Unknown Ur Specific [place] 1.033 (1.003-1.030) H 04/06/21 Unknown Urine Protein <15 mg/dl mg/dL (Negative) 04/06/21 Unknown Urine Glucose (UA) Neg mg/dL (Negative) 04/06/21 Unknown Urine Ketones Neg mg/dL (Negative) 04/06/21 Unknown Urine Blood Neg (Negative) 04/06/21 Unknown Urine Nitrite Neg (Negative) 04/06/21 Unknown Urine Bilirubin Neg (Negative) 04/06/21 Unknown Urine Urobilinogen < 2.0 mg/dL (<2.0) 04/06/21 Unknown Ur Leukocyte Esterase Neg (Negative) 04/06/21 Unknown Urine WBC (Auto) 1.0 /HPF (0.0-6.0) 04/06/21 Unknown Urine RBC (Auto) < 1.0 /HPF (0.0-6.0) 04/06/21 Unknown U Epithel Cells (Auto) 2.0 /HPF (0-13.0) 04/06/21 Unknown [place]/IV: Voiding Method Toilet Active Medications - Current Medications Current Medications: Generic Name Dose Route Start Last Admin Trade Name Freq PRN Reason Stop Dose Admin Acetaminophen 650 mg 04/07/21 03:09 Acetaminophen 325 Mg Tab PO Q4H PRN Pain MILD(1-3)/Fever >100.5/JACOB Al Hydrox/Mg Hydrox/Simethicone 30 ml 04/07/21 03:09 Alum-Mag Hydroxide-Simethicone [phone]/5ml Oral Liqd 30 Ml PO Q4H PRN Indigestion Sodium Chloride 1,000 mls @ 42 mls/hr 04/07/21 03:15 04/07/21 04:15 Nacl 0.9% 1000 Ml IV 42 mls/hr DIRECT BINACA Administration Piperacillin Sod/Tazobactam Sod 4.5 gm in 100 mls @ 200 mls/hr 04/07/21 09:00 04/07/21 08:56 Zosyn/Ns 4.5gm/100ml IV 200 mls/hr Q8H BIANCA Administration Protocol Magnesium Hydroxide 30 ml 04/07/21 03:09 Magnesium Hydroxide (Mom) Oral Liqd Udc PO Q4H PRN Constipation Metoclopramide HCl 10 mg 04/07/21 03:09 Metoclopramide 10 Mg/2 Ml Inj IV Q6H PRN Nausea And Vomiting Morphine Sulfate 2 mg 04/07/21 03:09 04/07/21 04:22 Morphine 2 Mg/1 Ml Inj IV 2 mg Q4H PRN Administration Pain, Moderate (4-6) Morphine Sulfate 4 mg 04/07/21 03:09 Morphine 4 Mg/1 Ml Inj IV Q4H PRN Pain , Severe (7-10) Naloxone HCl 0.1 mg 04/07/21 03:09 Naloxone 0.4 Mg/1 Ml Inj IV Q2MIN PRN Res Rate </= 8 or 02 SAT < 92% Ondansetron HCl 4 mg 04/07/21 03:09 Ondansetron 4 Mg/2 Ml Inj IV Q8H PRN Nausea And Vomiting Oxycodone/Acetaminophen 1 tab 04/07/21 03:09 Oxycodone /Acetaminophen 5-325mg Tab PO Q6H PRN Pain, Moderate (4-6) Sodium Chloride 10 ml 04/07/21 02:46 Sodium Chloride 0.9% 10 Ml Flush Syringe IV PRN PRN LINE FLUSH
[2021-04-07 11:33] LABS: Hematocrit 40.4 % (30.3-42.9); Hemoglobin 13.1 gm/dl (10.1-14.3); Mean Corpuscular HGB Conc 33 % (30-34); Mean Corpuscular Volume 88 fl (79-97); Platelet Count 251 K/mm3 (140-440); Red Blood Count 4.57 M/mm3 (3.65-5.03); Red Cell Distribution Width 13.9 % (13.2-15.2)
--- NOTE | 2021-04-07 12:46 | Consultation ---
History of Present Illness Consult date: 04/07/21 Reason for consult: abdominal pain Chief complaint: abd pain - History of present illness History of present illness: 25 yo F with no PMHx who presents to ER with c/o R sided abdominal pain that is sharp and started one day ago. No provoking factors. Pain radiates to left abdomen and right upper abdomen. It is intermittent. It did not resolved after a few hours and so patient came to ER. States she had nausea and decreased appetite but no vomiting. Last BM was two days ago and was loose. No f/c. Past History Past Medical History: No medical history Past Surgical History: No surgical history Social history: lives with family. denies: smoking, alcohol abuse, prescription drug abuse, IV drug use Family history: hypertension Medications and Allergies Allergies Allergy/AdvReac Type Severity Reaction Status Date / Time No Known Allergies Allergy Verified 04/06/21 22:42 Home Medications Medication Instructions Recorded Confirmed Last Taken Type Pnv 21/Iron Ps,Heme Ppep/Folic 1 each PO QDAY 01/30/15 03/18/15 01/29/15 12:00 History [Prefera Ob Tablet] 1 cephALEXin [Keflex] 250 mg PO Q6HR #28 capsule 03/10/15 03/18/15 Unknown Rx Famotidine [Pepcid] 20 mg PO BID #40 tablet 03/19/15 Unknown Rx Loratadine (Nf) [Claritin] 10 mg PO DAILY #30 tablet 03/19/15 Unknown Rx Prednisone [predniSONE 5 mg (6-Day 5 mg PO .TAPER #1 tab.ds.pk 03/19/15 Unknown Rx Pack, 21 Tabs)] Acetaminophen [Tylenol] 500 mg PO Q6HR PRN #12 tablet 07/26/19 Unknown Rx diazePAM TAB [Valium] 1 mg PO BID PRN #2 tablet 07/26/19 Unknown Rx Active Meds: Active Medications Acetaminophen (Acetaminophen 325 Mg Tab) 650 mg PO Q4H PRN PRN Reason: Pain MILD(1-3)/Fever >100.5/JACOB Al Hydrox/Mg Hydrox/Simethicone (Alum-Mag Hydroxide-Simethicone [phone]/5ml Oral Liqd 30 Ml) 30 ml PO Q4H PRN PRN Reason: Indigestion Sodium Chloride (Nacl 0.9% 1000 Ml) 1,000 mls @ 42 mls/hr IV DIRECT BIANCA Last Admin: 04/07/21 04:15 Dose: 42 mls/hr Documented by: Piperacillin Sod/Tazobactam Sod (Zosyn/Ns 4.5gm/100ml) 4.5 gm in 100 mls @ 200 mls/hr IV Q8H BIANCA; Protocol Last Admin: 04/07/21 08:56 Dose: 200 mls/hr Documented by: Magnesium Hydroxide (Magnesium Hydroxide (Mom) Oral Liqd Udc) 30 ml PO Q4H PRN PRN Reason: Constipation Metoclopramide HCl (Metoclopramide 10 Mg/2 Ml Inj) 10 mg IV Q6H PRN PRN Reason: Nausea And Vomiting Morphine Sulfate (Morphine 2 Mg/1 Ml Inj) 2 mg IV Q4H PRN PRN Reason: Pain, Moderate (4-6) Last Admin: 04/07/21 04:22 Dose: 2 mg Documented by: Morphine Sulfate (Morphine 4 Mg/1 Ml Inj) 4 mg IV Q4H PRN PRN Reason: Pain , Severe (7-10) Naloxone HCl (Naloxone 0.4 Mg/1 Ml Inj) 0.1 mg IV Q2MIN PRN PRN Reason: Res Rate </= 8 or 02 SAT < 92% Ondansetron HCl (Ondansetron 4 Mg/2 Ml Inj) 4 mg IV Q8H PRN PRN Reason: Nausea And Vomiting Oxycodone/Acetaminophen (Oxycodone /Acetaminophen 5-325mg Tab) 1 tab PO Q6H PRN PRN Reason: Pain, Moderate (4-6) Sodium Chloride (Sodium Chloride 0.9% 10 Ml Flush Syringe) 10 ml IV PRN PRN PRN Reason: LINE FLUSH Review of Systems All systems: negative (10 point ROS performed and negative except for that listed in HPI) Exam Vital Signs Temp Pulse Resp BP Pulse Ox 99.7 F H 87 18 119/67 98 04/06/21 21:21 04/06/21 21:21 04/06/21 21:21 04/06/21 21:21 04/06/21 21:21 Narrative exam: Gen.: Awake, alert, oriented x3. No apparent distress ENT: Trachea midline. No lymphadenopathy. No scleral icterus or conjunctival pallor CV: S1, S2 present Respiratory: No audible wheezes Abdomen: Soft, nondistended, mild tenderness in right upper quadrant and right l ower quadrant. No rebound, rigidity, guarding Extremities: No clubbing, cyanosis, edema Results - Labs 04/07/21 10:55 04/06/21 22:18 Abnormal lab results 04/06/21 04/06/21 04/06/21 Range/Units 22:18 22:18 Unknown WBC 13.7 H (4.5-11.0) K/mm3 Lymph % (Auto) 10.5 L (13.4-35.0) % [place] % (Auto) 9.4 H (0.0-7.3) % [place] # (Auto) 1.3 H (0.0-0.8) K/mm3 Seg Neutrophils % 79.6 H (40.0-70.0) % Seg Neutrophils # 10.9 H (1.8-7.7) K/mm3 Potassium 3.5 L (3.6-5.0) mmol/L BUN 4 L (7-17) mg/dL Ur Specific [place] 1.033 H (1.003-1.030) 04/07/21 Range/Units 10:55 WBC 11.4 H (4.5-11.0) K/mm3 Lymph % (Auto) (13.4-35.0) % [place] % (Auto) (0.0-7.3) % [place] # (Auto) (0.0-0.8) K/mm3 Seg Neutrophils % (40.0-70.0) % Seg Neutrophils # (1.8-7.7) K/mm3 Potassium (3.6-5.0) mmol/L BUN (7-17) mg/dL Ur Specific [place] (1.003-1.030) Diabetes panel 04/06/21 Range/Units 22:18 Sodium 139 (137-145) mmol/L Potassium 3.5 L (3.6-5.0) mmol/L Chloride 102.4 (98-107) mmol/L Carbon Dioxide 27 (22-30) mmol/L BUN 4 L (7-17) mg/dL Creatinine 0.8 (0.6-1.2) mg/dL Glucose 83 (65-100) mg/dL Calcium 9.1 (8.4-10.2) mg/dL AST 15 (5-40) units/L ALT 10 (7-56) units/L Alkaline Phosphatase 73 (35-129) units/L Total Protein 7.1 (6.3-8.2) g/dL Albumin 4.5 (3.9-5) g/dL Calcium panel 04/06/21 Range/Units 22:18 Calcium 9.1 (8.4-10.2) mg/dL Albumin 4.5 (3.9-5) g/dL Pituitary panel 04/06/21 Range/Units 22:18 Sodium 139 (137-145) mmol/L Potassium 3.5 L (3.6-5.0) mmol/L Chloride 102.4 (98-107) mmol/L Carbon Dioxide 27 (22-30) mmol/L BUN 4 L (7-17) mg/dL Creatinine 0.8 (0.6-1.2) mg/dL Glucose 83 (65-100) mg/dL Calcium 9.1 (8.4-10.2) mg/dL Adrenal panel 04/06/21 Range/Units 22:18 Sodium 139 (137-145) mmol/L Potassium 3.5 L (3.6-5.0) mmol/L Chloride 102.4 (98-107) mmol/L Carbon Dioxide 27 (22-30) mmol/L BUN 4 L (7-17) mg/dL Creatinine 0.8 (0.6-1.2) mg/dL Glucose 83 (65-100) mg/dL Calcium 9.1 (8.4-10.2) mg/dL Total Bilirubin 0.30 (0.1-1.2) mg/dL AST 15 (5-40) units/L ALT 10 (7-56) units/L Alkaline Phosphatase 73 (35-129) units/L Total Protein 7.1 (6.3-8.2) g/dL Albumin 4.5 (3.9-5) g/dL - Imaging CT scan - abdomen: report reviewed, image reviewed CT scan - pelvis: report reviewed, image reviewed Assessment and Plan 25-year-old female with right-sided abdominal pain, enteritis Ct a/p reviewed with in house radiologist - no evidence of appendicitis Plan: 1. trial of CLD 2. gentle IVF 3. prn pain and nausea control 4. does not need abx from surgery standpoint 5. ok to dc home if tolerates CLD. D/w patient. She wants to go home today. Instructed her to return to ER if f/c, n/v, increased abdominal pain Dr. Pressley notified Thank you for this consultation. Please call with any questions or concerns. Evaluation and treatment of this patient was during the time of the national and state emergency arising from COVID19 coronavirus pandemic. Treatment and procedures performed meet the current and available best practice and guidelines for patient during the COVID pandemic.
[2021-04-08] MEDS: PIPERACIL/TAZOBACTA 4.5/NS 100 4.5 GM/100 ML VIAL IV SCH ×2 (00:25→09:32)
[2021-04-08 05:11] VITALS: BP 93/51
[2021-04-08 06:02] LABS: Basophils % (Auto) 0.4 % (0.0-1.8); Eosinophils # (Auto) 0.1 K/mm3 (0.0-0.4); Eosinophils % (Auto) 1.1 % (0.0-4.3); Hematocrit 36.1 % (30.3-42.9); Hemoglobin 12.2 gm/dl (10.1-14.3); Lymphocytes # (Auto) 2.4 K/mm3 (1.2-5.4); Mean Corpuscular HGB Conc 34 % (30-34); Mean Corpuscular Volume 89 fl (79-97); Monocytes # (Auto) 1.6 K/mm3 (0.0-0.8); Platelet Count 222 K/mm3 (140-440); Red Blood Count 4.08 M/mm3 (3.65-5.03); Red Cell Distribution Width 13.7 % (13.2-15.2)
[2021-04-08 06:22] LABS: Alanine Aminotransferase 9 units/L (7-56); Albumin 3.5 g/dL (3.9-5); BUN/Creatinine Ratio 7; Blood Urea Nitrogen 6 mg/dL (7-17); Calcium 8.3 mg/dL (8.4-10.2); Hemolysis Index 29
--- NOTE | 2021-04-08 10:10 | Discharge Summary ---
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 No provoking factors. Pain radiated to left abdomen and right upper abdomen. The pain was intermittent and did not resolve after a few hours and so patient came to ER. The patient underwent CT scan which revealed enteritis. The patient was admitted with diagnosis of abdominal pain enteritis. Patient was seen by surgery and reported no evidence of appendicitis. Patient had a trial of clear liquid diet and was advanced to full diet which she tolerated. Patient reportedly does not need antibiotic from surgery standpoint. Patient is felt to have received maximal hospital benefit and will be discharged home. Dedicated discharge time 32 minutes. Disposition: 01 HOME / SELF CARE / HOMELESS Final Discharge Diagnosis (Prints w/discharge instructions): Abdominal pain, enteritis Core Measure Documentation - Palliative Care Palliative Care/ Comfort Measures: Not Applicable - Core Measures Any of the following diagnoses?: none Exam - Constitutional Vitals: Temp Pulse Resp BP Pulse Ox 98.0 F 77 16 93/51 99 04/08/21 05:08 04/08/21 05:08 04/08/21 05:08 04/08/21 05:08 04/08/21 05:08 General appearance: Present: no acute distress, well-nourished - EENT Eyes: Present: PERRL ENT: hearing intact, clear oral mucosa - Neck Neck: Present: supple, normal ROM - Respiratory Respiratory effort: normal Respiratory: bilateral: CTA - Cardiovascular Heart Sounds: Present: S1 & S2. Absent: rub, click - Extremities Extremities: pulses symmetrical, No edema Peripheral Pulses: within normal limits - Abdominal General gastrointestinal: Present: soft, non-tender, non-distended, normal bowel sounds Female genitourinary: Present: normal - Integumentary Integumentary: Present: clear, warm, dry - Musculoskeletal Musculoskeletal: gait normal, strength equal bilaterally - Psychiatric Psychiatric: appropriate mood/affect, intact judgment & insight - Neurologic Neurologic: CNII-XII intact, moves all extremities Plan Activity: advance as tolerated Weight Bearing Status: Weight Bear as Tolerated Diet: regular Follow up with: DUC OG MD [Primary Care Provider] - 7 Days Prescriptions: levoFLOXacin [Levaquin TAB] 500 mg PO QDAY #7 tablet
== END 2021-04-08 12:25 | disposition home or self-care (01) | DRG 392 ==
LOC: ED 21:14 → 4A 04-07 03:10
PROVIDERS: ADMIT Internal Medicine Geriatric Medicine; ATTEND Hospitalist
DX: K52.9 Noninfective gastroenteritis and colitis, unspecified (principal); F32.9 Major depressive disorder, single episode, unspecified; D72.829 Elevated white blood cell count, unspecified; Z82.49 Family history of ischemic heart disease and other diseases of the circulatory system
CPT/HCPCS: 36415; 74177; 76830; 80053; 81001; 83690; 83735; 84703; 85025; 85027; G0378; J2270; J2405; J2543; J7030; Q9967